=== PATIENT | male | born 1980 | race African-American/Black ===

== ENCOUNTER 2017-12-18 05:17 | Inpatient (IN) ==
--- NOTE | 2017-12-18 07:19 | ED ---
HPI General Chief Complaint: Abdominal Pain Stated Complaint: Abd pain Transfer [facility] Time Seen by Provider: 12/18/17 05:41 Source: patient, EMS, RN notes reviewed and old records reviewed Mode of arrival: EMS Limitations: no limitations History of Present Illness HPI narrative: Is a 37-year-old man, history of diabetes hypertension and renal , who presents as a transfer from [place]. He states he had abdominal pain today, and noticed cloudy fluid in his dialysate, and had abdominal fullness and pain. He recognizes his symptoms of bacterial peritonitis because he had it before. He went to the emergency department in [place], and apparently was transferred here from nephrology support. Related Data Home Medications Medication Instructions Recorded Confirmed alprazolam 1 mg PO DAILY 12/18/17 12/18/17 calcium acetate 2,001 mg PO TID 12/18/17 12/18/17 cholecalciferol (vitamin D3) 2,000 unit PO DAILY 12/18/17 12/18/17 cinacalcet 30 mg PO HS 12/18/17 12/18/17 cinnamon bark 500 mg PO DAILY 12/18/17 12/18/17 garlic 1,000 mg PO DAILY 12/18/17 12/18/17 losartan-hydrochlorothiazide 1 tab PO DAILY 12/18/17 12/18/17 minoxidil 20 mg PO DAILY 12/18/17 12/18/17 oxycodone 30 mg PO TID 12/18/17 12/18/17 sevelamer carbonate 2,400 mg PO DAILY 12/18/17 12/18/17 Allergies Allergy/AdvReac Type Severity Reaction Status Date / Time Sulfa (Sulfonamide Allergy Rash, Verified 12/18/17 05:33 Antibiotics) Generalized Review of Systems ROS: all other systems reviewed are negative [facility] Medical History Medical History Amputated toe of right foot (Acute) Diabetes (Acute) Hypertension (Acute) MDRO (multiple drug resistant organisms) resistance (Acute ~12/18/17) Peritoneal dialysis catheter in place (Acute) 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 SKIN: Warm and dry. CARDIOVASCULAR: Warm and well perfused. RESPIRATORY: Normal rate and effort. MUSCULOSKELETAL: Fistula in the left arm. ABDOMEN: Abdomen soft. Some mild diffuse tenderness. There is a peritoneal dialysis catheter in the left abdomen. NEUROLOGICAL: Awake and alert. No gross deficits. Course Initial Documented Vital Signs Temperature 98.9 F 12/18/17 05:23 Pulse Rate 91 H 12/18/17 05:23 Respiratory Rate 15 12/18/17 05:23 Blood Pressure 174/79 H 12/18/17 05:23 Pulse Oximetry 99 12/18/17 05:23 Last Documented Vital Signs Temperature 97.7 F 12/19/17 14:09 Pulse Rate 97 H 12/19/17 14:09 Respiratory Rate 18 12/19/17 14:09 Blood Pressure 150/68 H 12/19/17 14:09 Pulse Oximetry 97 12/19/17 14:09 Medical Decision Making MDM Narrative Medical decision making narrative: Is a 37-year-old male presents to the emergency department for evaluation for bacterial peritonitis. according to the transfer notes this was discussed with Dr. Hackett with nephrology. I attempted to speak with Dr. Hackett. He has not yet returned her call. I also spoke with Dr. Ohara, who states that her understanding of the situation was that the patient did not need to be admitted but needed to have patient antibiotic his peritoneal dialysis. Will attempt to discuss with nephrology. 9:15 AM. I spoke with nephrology Dr. Hackett and medical service. Patient will be admitted for peritoneal antibiotic that will be arranged by Dr. Hackett. Medical Screen Exam Complete: Yes Emergency Medical Condition: Yes Lab Data Result diagrams: 12/19/17 07:26 12/19/17 07:26 Lab Results 12/18/17 12/18/17 12/18/17 Range/Units 11:52 12:30 12:30 WBC 9.6 (4.0-11.0) th/mm3 RBC 2.55 L (4.50-5.90) mil/mm3 Hgb 8.2 L (13.0-17.0) gm/dL Hct 23.7 L (39.0-51.0) % MCV 92.8 (80.0-100.0) fL MCH 32.4 (27.0-34.0) pg MCHC 34.9 (32.0-36.0) % RDW 16.0 (11.6-17.2) % Plt Count 117 L (150-450) th/mm3 MPV 8.6 (7.0-11.0) fL Neut % (Auto) (16.0-70.0) % Lymph % (Auto) (9.0-44.0) % [place] % (Auto) (0.0-8.0) % Eos % (Auto) (0.0-4.0) % Baso % (Auto) (0.0-2.0) % Neut # (Auto) (1.8-7.7) th/mm3 Lymph # (Auto) (1.0-4.8) th/mm3 [place] # (Auto) (0.0-0.9) th/mm3 Eos # (Auto) (0.0-0.4) th/mm3 Baso # (Auto) (0.0-0.2) th/mm3 WBC Differential Differential Comment Sodium 139 (136-145) meq/L Potassium 3.7 (3.5-5.1) meq/L Chloride 95 L (98-107) meq/L Carbon Dioxide 29.3 (21.0-32.0) meq/L Anion Gap 15 (5-15) meq/L BUN 80 H (7-18) mg/dL Creatinine 12.81 H* (0.60-1.30) mg/dL Estimated GFR 5 L (>89) mL/min POC Glucose 128 H (68-110) mg/dl Random Glucose 124 H (74-106) mg/dL Calcium 7.8 L (8.5-10.1) mg/dL Phosphorus (2.5-4.9) mg/dL Magnesium (1.5-2.5) mg/dL Total Bilirubin (0.2-1.0) mg/dL AST (15-37) U/L ALT (12-78) U/L Alkaline Phosphatase (45-117) U/L Total Protein (6.4-8.2) g/dL Albumin (3.4-5.0) g/dL Peritoneal RBC (0-0) /mm3 Periton Nuc Cells (0-10) /mm3 Periton Neutrophils % Peritoneal Monocytes % Peritoneal Eosinophils % Periton Histiocytes % 12/18/17 12/18/17 12/18/17 Range/Units 14:30 17:05 19:58 WBC (4.0-11.0) th/mm3 RBC (4.50-5.90) mil/mm3 Hgb (13.0-17.0) gm/dL Hct (39.0-51.0) % MCV (80.0-100.0) fL MCH (27.0-34.0) pg MCHC (32.0-36.0) % RDW (11.6-17.2) % Plt Count (150-450) th/mm3 MPV (7.0-11.0) fL Neut % (Auto) (16.0-70.0) % Lymph % (Auto) (9.0-44.0) % [place] % (Auto) (0.0-8.0) % Eos % (Auto) (0.0-4.0) % Baso % (Auto) (0.0-2.0) % Neut # (Auto) (1.8-7.7) th/mm3 Lymph # (Auto) (1.0-4.8) th/mm3 [place] # (Auto) (0.0-0.9) th/mm3 Eos # (Auto) (0.0-0.4) th/mm3 Baso # (Auto) (0.0-0.2) th/mm3 WBC Differential Differential Comment Sodium (136-145) meq/L Potassium (3.5-5.1) meq/L Chloride (98-107) meq/L Carbon Dioxide (21.0-32.0) meq/L Anion Gap (5-15) meq/L BUN (7-18) mg/dL Creatinine (0.60-1.30) mg/dL Estimated GFR (>89) mL/min POC Glucose 146 H 129 H (68-110) mg/dl Random Glucose (74-106) mg/dL Calcium (8.5-10.1) mg/dL Phosphorus (2.5-4.9) mg/dL Magnesium (1.5-2.5) mg/dL Total Bilirubin (0.2-1.0) mg/dL AST (15-37) U/L ALT (12-78) U/L Alkaline Phosphatase (45-117) U/L Total Protein (6.4-8.2) g/dL Albumin (3.4-5.0) g/dL Peritoneal RBC 1009 H (0-0) /mm3 Periton Nuc Cells 7770 H (0-10) /mm3 Periton Neutrophils 95 % Peritoneal Monocytes 2 % Peritoneal Eosinophils 1 % Periton Histiocytes 2 % 12/19/17 12/19/17 12/19/17 Range/Units 07:26 07:26 08:30 WBC 7.3 (4.0-11.0) th/mm3 RBC 2.34 L (4.50-5.90) mil/mm3 Hgb 7.5 L (13.0-17.0) gm/dL Hct 22.0 L (39.0-51.0) % MCV 94.2 (80.0-100.0) fL MCH 32.2 (27.0-34.0) pg MCHC 34.2 (32.0-36.0) % RDW 15.3 (11.6-17.2) % Plt Count 112 L (150-450) th/mm3 MPV 8.3 (7.0-11.0) fL Neut % (Auto) 73.5 H (16.0-70.0) % Lymph % (Auto) 14.9 (9.0-44.0) % [place] % (Auto) 6.5 (0.0-8.0) % Eos % (Auto) 4.2 H (0.0-4.0) % Baso % (Auto) 0.9 (0.0-2.0) % Neut # (Auto) 5.3 (1.8-7.7) th/mm3 Lymph # (Auto) 1.1 (1.0-4.8) th/mm3 [place] # (Auto) 0.5 (0.0-0.9) th/mm3 Eos # (Auto) 0.3 (0.0-0.4) th/mm3 Baso # (Auto) 0.1 (0.0-0.2) th/mm3 WBC Differential . Differential Comment Auto diff final Sodium 136 (136-145) meq/L Potassium 3.4 L (3.5-5.1) meq/L Chloride 94 L (98-107) meq/L Carbon Dioxide 29.0 (21.0-32.0) meq/L Anion Gap 13 (5-15) meq/L BUN 66 H (7-18) mg/dL Creatinine 11.84 H* (0.60-1.30) mg/dL Estimated GFR 6 L (>89) mL/min POC Glucose 194 H (68-110) mg/dl Random Glucose 183 H (74-106) mg/dL Calcium 7.5 L (8.5-10.1) mg/dL Phosphorus 4.3 (2.5-4.9) mg/dL Magnesium 1.7 (1.5-2.5) mg/dL Total Bilirubin 0.6 (0.2-1.0) mg/dL AST 10 L (15-37) U/L ALT 13 (12-78) U/L Alkaline Phosphatase 101 (45-117) U/L Total Protein 6.3 L (6.4-8.2) g/dL Albumin 2.3 L (3.4-5.0) g/dL Peritoneal RBC (0-0) /mm3 Periton Nuc Cells (0-10) /mm3 Periton Neutrophils % Peritoneal Monocytes % Peritoneal Eosinophils % Periton Histiocytes % 12/19/17 Range/Units 11:45 WBC (4.0-11.0) th/mm3 RBC (4.50-5.90) mil/mm3 Hgb (13.0-17.0) gm/dL Hct (39.0-51.0) % MCV (80.0-100.0) fL MCH (27.0-34.0) pg MCHC (32.0-36.0) % RDW (11.6-17.2) % Plt Count (150-450) th/mm3 MPV (7.0-11.0) fL Neut % (Auto) (16.0-70.0) % Lymph % (Auto) (9.0-44.0) % [place] % (Auto) (0.0-8.0) % Eos % (Auto) (0.0-4.0) % Baso % (Auto) (0.0-2.0) % Neut # (Auto) (1.8-7.7) th/mm3 Lymph # (Auto) (1.0-4.8) th/mm3 [place] # (Auto) (0.0-0.9) th/mm3 Eos # (Auto) (0.0-0.4) th/mm3 Baso # (Auto) (0.0-0.2) th/mm3 WBC Differential Differential Comment Sodium (136-145) meq/L Potassium (3.5-5.1) meq/L Chloride (98-107) meq/L Carbon Dioxide (21.0-32.0) meq/L Anion Gap (5-15) meq/L BUN (7-18) mg/dL Creatinine (0.60-1.30) mg/dL Estimated GFR (>89) mL/min POC Glucose 149 H (68-110) mg/dl Random Glucose (74-106) mg/dL Calcium (8.5-10.1) mg/dL Phosphorus (2.5-4.9) mg/dL Magnesium (1.5-2.5) mg/dL Total Bilirubin (0.2-1.0) mg/dL AST (15-37) U/L ALT (12-78) U/L Alkaline Phosphatase (45-117) U/L Total Protein (6.4-8.2) g/dL Albumin (3.4-5.0) g/dL Peritoneal RBC (0-0) /mm3 Periton Nuc Cells (0-10) /mm3 Periton Neutrophils % Peritoneal Monocytes % Peritoneal Eosinophils % Periton Histiocytes % CBC unremarkable, white blood cell count 11.9, hemoglobin 8.7, platelet count 151 INR 1.5 Peritoneal fluid shows 1476 WBC, 41 RBC, 70% neutrophils, glucose 1247, total protein 0.3, LDH 19 CMP shows sodium 136, potassium 3.5, bicarb 26, anion gap 23, BUN and creatinine 70/11.74 Discharge Plan Discharge Disposition Patient Disposition: 30 Still Patient Discharge Condition Condition: Fair Discharge Order Discharge Orders: Discharge Order (Routine); Ordered 12/19/17 Ordered By: Vikas Solo Discharge Details Diagnosis: Peritonitis, History of end stage renal disease Physicians Team ED Provider: Arsen Del Real Primary Care Provider: UNKNOWN, Attending Provider: Vikas Solo Other Providers: Jani Hackett V Status ED Status: Left Department Discharge Information Discharge Date/Time: 12/18/17 10:50
[2017-12-18] MEDS ORDERED: Morphine Sulfate Inj 2 MG/ML Vial IV.PUSH ONE (08:40)
[2017-12-18] MEDS ORDERED: Sod Chloride 0.9% Inj 1,000 ML IV.CONT SCH (09:30)
[2017-12-18] MEDS ORDERED: Non-Formulary Drug (Losartan-Hydrochlorothiazide [Losartan-Hydrochlorothiazide] 1 TAB) PO SCH (11:00)
--- NOTE | 2017-12-18 11:21 | P.HPIM ---
History of Present Illness Primary Care Physician: UNKNOWN Chief Complaint: abdominal pain History of Present Illness: patient is a 37 y/o male with history of hypertension, diet-controlled diabetes , ESRD on peritoneal dialysis presented to ER with abdominal pain. he says that the pain started last night. abdominal pain was generalized, severe and constant. pain was associated with nausea and fever. he says that while he was getting his peritoneal dialysis he noticed that the fluid ' was cloudy'. he was seen at [facility] but since no nephrology was available , he was transferred to [place] for further evaluation. Inpatient Certification: I certify that the inpatient services were ordered in accordance with Medicare regulations governing the order. This includes certification that hospital inpatient services are reasonable and necessary and in the case of services not specified as inpatient-only under 42 CFR 419.22(n), that they are appropriately provided as inpatient services in accordance to with the 2-midnight benchmark under 43 CFR 412.3(e) Review of Systems All other systems reviewed negative except as stated in HPI PMFSH - History History Provided By: Patient - Medical History Medical History: Medical History (Last Reviewed 12/18/17 @ 10:54 by Vikas Solo MD) Amputated toe of right foot Diabetes Hypertension Peritoneal dialysis catheter in place 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 - Surgical History Surgical History: Surgical History (Last Reviewed 12/18/17 @ 10:54 by Vikas Solo MD) S/P cholecystectomy - Family History Family History: Family History (Last Updated 12/18/17 @ 10:54 by Vikas Solo MD) Other No pertinent family history - Tobacco History Second Hand Smoke Exposure: No Smoking Status: Never smoker - Alcohol History How Often Do You Have a Drink Containing Alcohol: Never - Travel History Recent Travel in the [facility] Within the Last 8 Weeks: No - Immunization History Tetanus Immunization: <5 Years Medications and Allergies Active Medications: Active Medications Alprazolam (Xanax) 1 mg PO DAILY [facility] Cinacalcet (Sensipar) 30 mg PO HS [facility] Clonidine HCl (Catapres) 0.1 mg PO Q8HR PRN PRN Reason: SBP > 180 or DBP > 100 Ceftazidime 1,000 mg/ Sodium (Chloride) 100 mls @ 200 mls/hr I-PERITONL DAILY [facility] Sodium Chloride (Ns Inj) 1,000 mls @ 42 mls/hr IV.CONT .[id number] [facility] Minoxidil (Loniten) 20 mg PO DAILY [facility] Non-Formulary Medication (Calcium Acetate [Calcium Acetate]) 2,001 mg PO TID [facility] Non-Formulary Medication (Cholecalciferol (Vitamin D3) [Cholecalciferol ( Vitamin D3)]) 2,000 unit PO DAILY [facility] Non-Formulary Medication (Losartan-Hydrochlorothiazide [Losartan- Hydrochlorothiazide]) 1 tab PO DAILY [facility] Non-Formulary Medication (Oxycodone [Oxycodone]) 30 mg PO TID [facility] Non-Formulary Medication (Sevelamer Carbonate [Sevelamer Carbonate]) 2,400 mg PO DAILY [facility] Vancomycin HCl (Vancomycin Inj) 2,000 mg I-PERITONL Q7D [facility] Allergies Allergy/AdvReac Type Severity Reaction Status Date / Time Sulfa (Sulfonamide Allergy Rash, Verified 12/18/17 05:33 Antibiotics) Generalized Home Medications Medication Instructions Recorded Confirmed Type alprazolam 1 mg PO DAILY 12/18/17 12/18/17 History calcium acetate 2,001 mg PO TID 12/18/17 12/18/17 History cholecalciferol (vitamin D3) 2,000 unit PO DAILY 12/18/17 12/18/17 History cinacalcet 30 mg PO HS 12/18/17 12/18/17 History cinnamon bark 500 mg PO DAILY 12/18/17 12/18/17 History garlic 1,000 mg PO DAILY 12/18/17 12/18/17 History losartan-hydrochlorothiazide 1 tab PO DAILY 12/18/17 12/18/17 History minoxidil 20 mg PO DAILY 12/18/17 12/18/17 History oxycodone 30 mg PO TID 12/18/17 12/18/17 History sevelamer carbonate 2,400 mg PO DAILY 12/18/17 12/18/17 History Exam Vital signs: Vital Signs 12/18/17 05:23 12/18/17 07:45 12/18/17 08:53 Temperature 98.9 F 98.9 F Pulse Rate 91 H 89 87 Respiratory Rate 15 19 17 Blood Pressure 174/79 H 190/83 H 214/96 H Pulse Oximetry 99 97 94 L 12/18/17 09:45 Temperature Pulse Rate 85 Respiratory Rate 16 Blood Pressure 175/74 H Pulse Oximetry 95 Intake & Output 12/17/17 12/18/17 12/18/17 18:59 06:59 18:59 Weight 101.605 kg - Constitutional no acute distress - Routine HEENT Exam Eye: Present: PERRL - Routine Neck Exam Present: supple - Routine Respiratory Exam Present: CTA bilaterally - Routine Cardiovascular Exam Present: RRR - Routine Abdominal Exam Present: soft, tenderness (generalized tenederness.) - Routine Extremities Exam Comments: s/p left BKA - Routine Neurological Exam Present: alert, oriented X3 Caprini VTE Risk Assessment Caprini VTE Risk Assessment: Moderate/High Risk (score >= 2) Caprini Risk Assessment Model: Point Value = 1 Point Value = 2 Point Value = 3 Point Value = 5 Age 41-60 Minor surgery BMI > 25 kg/m2 Swollen legs Varicose veins or History of unexplained or recurrent spontaneous Oral contraceptives or hormone replacement Sepsis (< 1 month) Serious lung disease, including pneumonia (< 1 month) Abnormal pulmonary function Acute myocardial infarction Congestive heart failure (< 1 month) History of inflammatory bowel disease Medical patient at bed rest Age 61-74 Arthroscopic surgery Major open surgery (> 45 min) Laparoscopic surgery (> 45 min) Malignancy Confined to bed (> 72 hours) Immobilizing plaster cast Central venous access Age >= 75 History of VTE Family history of VTE Factor V Leiden Prothrombin [id number] Lupus anticoagulant Anticardiolipin antibodies Elevated serum homocysteine Heparin-induced thrombocytopenia Other congenital or acquired thrombophilia Stroke (< 1 month) Elective arthroplasty Hip, pelvis, or leg fracture Acute spinal cord injury (< 1 month) Prophylaxis Regimen: Total Risk Factor Score Risk Level Prophylaxis Regimen 0-1 Low Early ambulation 2 Moderate Order ONE of the following: *Sequential Compression Device (SCD) *Heparin 5000 units SQ BID 3-4 Higher Order ONE of the following medications: *Heparin 5000 units SQ TID *Enoxaparin/Lovenox 40 mg SQ daily (WT < 150 kg, CrCl > 30 mL/min) *Enoxaparin/Lovenox 30 mg SQ daily (WT < 150 kg, CrCl > 10-29 mL/min) *Enoxaparin/Lovenox 30 mg SQ BID (WT < 150 kg, CrCl > 30 mL/min) AND/OR *Sequential Compression Device (SCD) 5 or more Highest Order ONE of the following medications: *Heparin 5000 units SQ TID (Preferred with Epidurals) *Enoxaparin/Lovenox 40 mg SQ daily (WT < 150 kg, CrCl > 30 mL/min) *Enoxaparin/Lovenox 30 mg SQ daily (WT < 150 kg, CrCl > 10-29 mL/min) *Enoxaparin/Lovenox 30 mg SQ BID (WT < 150 kg, CrCl > 30 mL/min) AND *Sequential Compression Device (SCD) Assessment and Plan - Plan A/P - peritonitis- on peritoneal dialysis
[2017-12-18] MEDS ORDERED: Dextrose 50% in Water 50 ML Vial IV.PUSH PRN (11:23)
--- NOTE | 2017-12-18 11:33 | P.HPIM ---
History of Present Illness Primary Care Physician: UNKNOWN Chief Complaint: abdominal pain History of Present Illness: patient is a 37 y/o male with history of hypertension, diet-controlled diabetes , ESRD on peritoneal dialysis presented to ER with abdominal pain. he says that the pain started last night. abdominal pain was generalized, severe and constant. pain was associated with nausea and fever. he says that while he was getting his peritoneal dialysis he noticed that the fluid ' was cloudy'. he was seen at [facility] but since no nephrology was available , he was transferred to [facility] for further evaluation. Inpatient Certification: I certify that the inpatient services were ordered in accordance with Medicare regulations governing the order. This includes certification that hospital inpatient services are reasonable and necessary and in the case of services not specified as inpatient-only under 42 CFR 419.22(n), that they are appropriately provided as inpatient services in accordance to with the 2-midnight benchmark under 43 CFR 412.3(e) Estimated Total Length of Stay (Days): 2 Plans for Post Hospital Care: Home Review of Systems All other systems reviewed negative except as stated in HPI PMFSH - History History Provided By: Patient - Medical History Medical History: Medical History (Last Reviewed 12/18/17 @ 11:32 by Vikas Solo MD) Amputated toe of right foot Diabetes Hypertension Peritoneal dialysis catheter in place 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 - Surgical History Surgical History: Surgical History (Last Reviewed 12/18/17 @ 11:32 by Vikas Solo MD) S/P cholecystectomy - Family History Family History: Family History (Last Reviewed 12/18/17 @ 11:32 by Vikas Solo MD) Other No pertinent family history - Tobacco History Second Hand Smoke Exposure: No Smoking Status: Never smoker - Alcohol History How Often Do You Have a Drink Containing Alcohol: Never - Travel History Recent Travel in the [place] Within the Last 8 Weeks: No - Immunization History Tetanus Immunization: <5 Years Medications and Allergies Active Medications: Active Medications Alprazolam (Xanax) 1 mg PO DAILY [facility] Calcium Acetate (Phoslo) 2,001 mg PO TID [facility] Cinacalcet (Sensipar) 30 mg PO HS [facility] Clonidine HCl (Catapres) 0.1 mg PO Q8HR PRN PRN Reason: SBP > 180 or DBP > 100 Last Admin: 12/18/17 11:26 Dose: 0.1 mg Dextrose (D50w Vial) 50 ml IV.PUSH UNSCH PRN PRN Reason: PER HYPOGLYCEMIA PROTOCOL Glucagon (Glucagon Inj) 1 mg OTHER PRN PRN PRN Reason: for Hypoglycemia Protocol Hydrochlorothiazide (Microzide) 12.5 mg PO DAILY [facility] Last Admin: 12/18/17 11:26 Dose: 12.5 mg Ceftazidime 1,000 mg/ Sodium (Chloride) 100 mls @ 200 mls/hr I-PERITONL DAILY [facility] Sodium Chloride (Ns Inj) 1,000 mls @ 42 mls/hr IV.CONT .[id number] [facility] Last Admin: 12/18/17 10:59 Dose: 42 mls/hr Insulin Aspart (Novolog Insulin Correctional Sugar Inj) 0 unit SQ ACHS [facility]; Protocol Losartan Potassium (Cozaar) 50 mg PO DAILY [facility] Last Admin: 12/18/17 11:26 Dose: 50 mg Minoxidil (Loniten) 20 mg PO DAILY [facility] Oxycodone HCl (Roxicodone) 30 mg PO TID [facility] Sevelamer Carbonate (Renvela) 2,400 mg PO DAILY [facility] Vancomycin HCl (Vancomycin Inj) 2,000 mg I-PERITONL Q7D [facility] Vitamin D (Vitamin D3) 2,000 unit PO DAILY [facility] Allergies Allergy/AdvReac Type Severity Reaction Status Date / Time Sulfa (Sulfonamide Allergy Rash, Verified 12/18/17 05:33 Antibiotics) Generalized Home Medications Medication Instructions Recorded Confirmed Type alprazolam 1 mg PO DAILY 12/18/17 12/18/17 History calcium acetate 2,001 mg PO TID 12/18/17 12/18/17 History cholecalciferol (vitamin D3) 2,000 unit PO DAILY 12/18/17 12/18/17 History cinacalcet 30 mg PO HS 12/18/17 12/18/17 History cinnamon bark 500 mg PO DAILY 12/18/17 12/18/17 History garlic 1,000 mg PO DAILY 12/18/17 12/18/17 History losartan-hydrochlorothiazide 1 tab PO DAILY 12/18/17 12/18/17 History minoxidil 20 mg PO DAILY 12/18/17 12/18/17 History oxycodone 30 mg PO TID 12/18/17 12/18/17 History sevelamer carbonate 2,400 mg PO DAILY 12/18/17 12/18/17 History Exam Vital signs: Vital Signs 12/18/17 05:23 12/18/17 07:45 12/18/17 08:53 Temperature 98.9 F 98.9 F Pulse Rate 91 H 89 87 Respiratory Rate 15 19 17 Blood Pressure 174/79 H 190/83 H 214/96 H Pulse Oximetry 99 97 94 L 12/18/17 09:45 12/18/17 10:58 Temperature Pulse Rate 85 Respiratory Rate 16 17 Blood Pressure 175/74 H Pulse Oximetry 95 Intake & Output 12/17/17 12/18/17 12/18/17 18:59 06:59 18:59 Weight 101.605 kg - Constitutional no acute distress - Routine HEENT Exam Eye: Present: PERRL - Routine Neck Exam Present: supple - Routine Respiratory Exam Present: CTA bilaterally - Routine Cardiovascular Exam Present: RRR - Routine Abdominal Exam Present: soft, tenderness (generalized tenderness.) - Routine Extremities Exam Comments: no pedal edema. - Routine Neurological Exam Present: alert, oriented X3 Results - Labs CBC & Chem 7: 12/18/17 12:30 12/18/17 12:30 Caprini VTE Risk Assessment Caprini VTE Risk Assessment: Moderate/High Risk (score >= 2) Caprini Risk Assessment Model: Point Value = 1 Point Value = 2 Point Value = 3 Point Value = 5 Age 41-60 Minor surgery BMI > 25 kg/m2 Swollen legs Varicose veins or History of unexplained or recurrent spontaneous Oral contraceptives or hormone replacement Sepsis (< 1 month) Serious lung disease, including pneumonia (< 1 month) Abnormal pulmonary function Acute myocardial infarction Congestive heart failure (< 1 month) History of inflammatory bowel disease Medical patient at bed rest Age 61-74 Arthroscopic surgery Major open surgery (> 45 min) Laparoscopic surgery (> 45 min) Malignancy Confined to bed (> 72 hours) Immobilizing plaster cast Central venous access Age >= 75 History of VTE Family history of VTE Factor V Leiden Prothrombin [id number] Lupus anticoagulant Anticardiolipin antibodies Elevated serum homocysteine Heparin-induced thrombocytopenia Other congenital or acquired thrombophilia Stroke (< 1 month) Elective arthroplasty Hip, pelvis, or leg fracture Acute spinal cord injury (< 1 month) Prophylaxis Regimen: Total Risk Factor Score Risk Level Prophylaxis Regimen 0-1 Low Early ambulation 2 Moderate Order ONE of the following: *Sequential Compression Device (SCD) *Heparin 5000 units SQ BID 3-4 Higher Order ONE of the following medications: *Heparin 5000 units SQ TID *Enoxaparin/Lovenox 40 mg SQ daily (WT < 150 kg, CrCl > 30 mL/min) *Enoxaparin/Lovenox 30 mg SQ daily (WT < 150 kg, CrCl > 10-29 mL/min) *Enoxaparin/Lovenox 30 mg SQ BID (WT < 150 kg, CrCl > 30 mL/min) AND/OR *Sequential Compression Device (SCD) 5 or more Highest Order ONE of the following medications: *Heparin 5000 units SQ TID (Preferred with Epidurals) *Enoxaparin/Lovenox 40 mg SQ daily (WT < 150 kg, CrCl > 30 mL/min) *Enoxaparin/Lovenox 30 mg SQ daily (WT < 150 kg, CrCl > 10-29 mL/min) *Enoxaparin/Lovenox 30 mg SQ BID (WT < 150 kg, CrCl > 30 mL/min) AND *Sequential Compression Device (SCD) Assessment and Plan - Plan A/P - peritonitis- on peritoneal dialysis started on Ceftazidime and Vanco- will consult Nephrology- continue with pain control and antiemetics as needed. -hypertension; resume home meds- clonidine as needed. -diabetes mellitus- diet controlled- start on accu-check with SSI -anemia- of chronic disease- will monitor. -DVT prophylaxis with subq heparin Discussed Condition With: ER physician and the patient.
[2017-12-18] MEDS: Insulin NovoLOG Aspart Correctional Sugar Inj SQ SCH ×3 (12:05→21:35)
[2017-12-18] MEDS: Calcium Acetate 667 MG Capsule PO SCH ×2 (12:24→17:46)
[2017-12-18 12:52] LABS: Hematocrit 23.7 % (39.0-51.0); Hemoglobin 8.2 gm/dL (13.0-17.0); Mean Corpuscular HGB Conc 34.9 % (32.0-36.0); Mean Corpuscular Hemoglobin 32.4 pg (27.0-34.0); Mean Corpuscular Volume 92.8 fL (80.0-100.0); Mean Platelet Volume 8.6 fL (7.0-11.0); Platelet Count 117 th/mm3 (150-450); Red Blood Count 2.55 mil/mm3 (4.50-5.90); White Blood Count 9.6 th/mm3 (4.0-11.0)
[2017-12-18 13:14] LABS: Calcium 7.8 mg/dL (8.5-10.1); Carbon Dioxide 29.3 meq/L (21.0-32.0); Potassium 3.7 meq/L (3.5-5.1)
[2017-12-18 16:27] LABS: Eosinophils,Peritoneal Fluid 1 %; Neutrophils,Peritoneal Fluid 95 %; RBC,Peritoneal Fluid 1009 /mm3 (0-0)
--- NOTE | 2017-12-18 19:36 | MB ---
cc: Jani Hackett MD DATE: 12/18/2017 REASON FOR CONSULTATION: End-stage renal disease management. HISTORY OF PRESENT ILLNESS: This is a 37-year-old male with a history of diabetes, hypertension and ESRD, on peritoneal dialysis. The patient lives in [place] and has been on peritoneal dialysis for approximately 3 years. He was on home dialysis prior to that. Apparently, the patient had an episode of peritonitis approximately 2-3 years ago, which was treated with antibiotics. Otherwise, he was in his usual state of health; however, over the last 48 hours, complained of abdominal pains. He did have peritoneal dialysis treatment at home, which revealed findings of cloudy fluid. At that point, given his abdominal pains and suspicion for peritonitis, he went to his local ER, which was apparently [facility]. Last night, I was given a call from [place] where they apparently are unable to do peritoneal dialysis or give antibiotics and the patient was transferred up here to [place]. At this point, the patient is resting comfortably in bed. He has some ongoing abdominal discomforts and pains; however, reports this is somewhat improved since last night. He has no other acute complaints at this point. Apparently at [facility], PD fluid was checked, which revealed 14,000 white blood cells and 70% neutrophils and the patient was transferred here for further peritoneal dialysis management. He was admitted by the primary team and has been restarted on his diabetes and blood pressure medications. He is resting in bed comfortably with no other acute complaints at this time. REVIEW OF SYSTEMS: The patient denies any fevers, chills. No nausea, no vomiting, no diarrhea, no constipation, no dysuria. The patient has abdominal pains with peritoneal fluid drainage; however, this has improved over the last 24 hours. No dizziness or loss of consciousness. Otherwise, review of systems is negative. PAST MEDICAL HISTORY: Includes a right foot amputation, left leg amputation, diabetes, hypertension, peritoneal dialysis catheter. The patient has right upper arm AV fistula. Surgical history includes cholecystectomy. FAMILY HISTORY: Noncontributory. SOCIAL HISTORY: No alcohol, tobacco or drug use. The patient lives at home in [place]. MEDICATIONS AT HOME: Included: 1. Xanax. 2. PhosLo. 3. Sensipar. 4. Catapres. 5. Thiazide. 6. Insulin. 7. Losartan. 8. Minoxidil. 9. Oxycodone. 10. Renagel. 11. Vitamin D. ALLERGIES: INCLUDE SULFA ALLERGY. PHYSICAL EXAMINATION: VITAL SIGNS: At the time of evaluation, temperature 99.7, pulse 84, respiratory rate 16, blood pressure 179/81, 98% oxygen saturation. GENERAL: Awake, alert and oriented, in no apparent distress. NECK: Soft, supple. CARDIAC: Regular rate and rhythm. PULMONARY: Lungs are clear to auscultation. ABDOMEN: Soft. Mild tenderness. PD catheter in place with no signs of any drainage or erythema. EXTREMITIES: No edema. The patient with a left BKA. The patient with a right upper arm AV fistula with good thrill. LABORATORY FINDINGS: From [facility], peritoneal fluid with a 14,000 white blood cells, 70% neutrophils, LDH of 19. Sodium 139, potassium 3.7, chloride 95, bicarbonate 29.3, BUN 80, creatinine 12.8, glucose 124, calcium 7.8. White count 9.6, hemoglobin 8.2, hematocrit 23.7, platelet count 117. ASSESSMENT AND PLAN: 1. End-stage renal disease. The patient is on peritoneal dialysis. We will continue with peritoneal dialysis prescription here. The patient reports having good drainage of 2 liters on his last treatment. Volume status and electrolytes otherwise stable. 2. Peritonitis. The patient was symptomatic findings of peritonitis. At this point, initial peritoneal fluid from [place] is suspicious for a peritoneal infection in addition to abdominal tenderness and cloudy fluid per dialysate per the patient. At this point, we will start with peritonitis treatment. We will give vancomycin 2 grams intraperitoneal x1 with peritoneal dialysis treatment tonight. In addition, we will give Fortaz 1 gram. The Fortaz can be continued for peritonitis daily. Continue to monitor tonight. The patient, of note, has his peritoneal dialysis managed by [facility] in [place]. Dr. Sahu is a piano case maker down there. I have discussed this with the peritoneal dialysis nurse human resources operations manager. We will do a peritoneal dialysis treatment tonight with antibiotics and attempt to possibly discharge the patient home after peritoneal dialysis with antibiotics tomorrow. The patient was originally transferred here because of inability to manage peritonitis and peritoneal dialysis at [facility] in [place]. We will continue peritoneal treatment for now and ideally continue with antibiotics as an outpatient once arrangements can be made. For his PD in [place], the contact phone numbers are: [phone] After hours: 3. Diabetes. Continue with insulin. 4. Hypertension. Continue with medications. 5. Case management. May need case management assistance for further discharge after peritoneal dialysis potentially tomorrow evening or early Wednesday morning. The patient does not have any friends or family in the [place] area and will need transportation back to [place] at home. MD HUI Ybarra/shanita , 04:36 PM , 04:46 PM MTDD
[2017-12-18] MEDS: Heparin - SQ 10,000 UNITS/ML Vial SQ SCH (21:32)
[2017-12-19 08:17] LABS: Baso # (Auto) 0.1 th/mm3 (0.0-0.2); Baso % (Auto) 0.9 % (0.0-2.0); Eos # (Auto) 0.3 th/mm3 (0.0-0.4); Eos % (Auto) 4.2 % (0.0-4.0); Hemoglobin 7.5 gm/dL (13.0-17.0); Lymph # (Auto) 1.1 th/mm3 (1.0-4.8); Lymph % (Auto) 14.9 % (9.0-44.0); Mean Corpuscular HGB Conc 34.2 % (32.0-36.0); Mean Corpuscular Hemoglobin 32.2 pg (27.0-34.0); Mean Corpuscular Volume 94.2 fL (80.0-100.0); Mean Platelet Volume 8.3 fL (7.0-11.0); Mono # (Auto) 0.5 th/mm3 (0.0-0.9); Mono % (Auto) 6.5 % (0.0-8.0); Neut # (Auto) 5.3 th/mm3 (1.8-7.7); Neut % (Auto) 73.5 % (16.0-70.0); Platelet Count 112 th/mm3 (150-450); Red Blood Count 2.34 mil/mm3 (4.50-5.90); Red Cell Distribution Width 15.3 % (11.6-17.2); White Blood Count 7.3 th/mm3 (4.0-11.0)
[2017-12-19 08:37] LABS: Albumin 2.3 g/dL (3.4-5.0); Anion Gap 13 meq/L (5-15); Aspartate Aminotransferase 10 U/L (15-37); Blood Urea Nitrogen 66 mg/dL (7-18); Calcium 7.5 mg/dL (8.5-10.1); Chloride 94 meq/L (98-107); Glomerular Filtration Rate 6 mL/min (>89); Glucose,Random 183 mg/dL (74-106); Magnesium 1.7 mg/dL (1.5-2.5); Potassium 3.4 meq/L (3.5-5.1); Sodium 136 meq/L (136-145)
[2017-12-19 08:39] LABS: Alanine Aminotransferase 13 U/L (12-78); Phosphorus 4.3 mg/dL (2.5-4.9)
[2017-12-19 08:40] LABS: Alkaline Phosphatase 101 U/L (45-117); Total Protein 6.3 g/dL (6.4-8.2)
[2017-12-19] MEDS ORDERED: Minoxidil 10 MG Tablet PO SCH (09:00)
[2017-12-19] MEDS: Insulin NovoLOG Aspart Correctional Sugar Inj SQ SCH ×2 (09:21→12:11)
[2017-12-19] MEDS: Calcium Acetate 667 MG Capsule PO SCH ×2 (09:23→13:40)
[2017-12-19] MEDS: Heparin - SQ 10,000 UNITS/ML Vial SQ SCH (09:24)
--- NOTE | 2017-12-19 09:49 | P.PNIM ---
Subjective Interval history: f/u; peritonitis in no acute distress. feels better today and abdominal pain has improved. no fever. d/w the RN. Physical Exam Vital signs: Vital Signs 12/18/17 10:58 12/18/17 12:00 12/18/17 16:00 Temperature 99.7 F H 98.6 F Pulse Rate 84 85 Respiratory Rate 17 16 14 Blood Pressure 179/81 H 134/82 Pulse Oximetry 98 99 12/18/17 20:00 12/19/17 00:00 12/19/17 08:00 Temperature 99.2 F 98.8 F 98.1 F Pulse Rate 88 88 78 Respiratory Rate 20 20 16 Blood Pressure 218/100 H 147/84 H 145/75 H Pulse Oximetry 99 95 99 Intake & Output 12/18/17 12/19/17 12/19/17 18:59 06:59 18:59 Intake Total 0 / 0 480 / 480 Output Total 0 / 0 1688 / 1688 Balance 0 / 0 480 / 480 -1688 / -1688 Weight 101.605 kg 101 kg Intake: Oral 0 / 0 480 / 480 Output: Urine 0 / 0 Peritoneal Amount 1688 / 1688 Other: # Voids 0 Date of Last Bowel Movement 12/17/17 12/17/17 # Bowel Movements 1 0 Weight On Admission 101.605 kg - Constitutional no acute distress - Routine Respiratory Exam Present: CTA bilaterally - Routine Cardiovascular Exam Present: RRR - Routine Abdominal Exam Present: soft - Routine Extremities Exam Comments: no pedal edema. - Routine Neurological Exam Present: alert, oriented X3 Results - Labs CBC & Chem 7: 12/19/17 07:26 12/19/17 07:26 Laboratory Results - last 24 hr 12/18/17 12/18/17 12/18/17 11:52 12:30 12:30 WBC 9.6 RBC 2.55 L Hgb 8.2 L Hct 23.7 L MCV 92.8 MCH 32.4 MCHC 34.9 RDW 16.0 Plt Count 117 L MPV 8.6 Neut % (Auto) Lymph % (Auto) [place] % (Auto) Eos % (Auto) Baso % (Auto) Neut # (Auto) Lymph # (Auto) [place] # (Auto) Eos # (Auto) Baso # (Auto) WBC Differential Differential Comment Sodium 139 Potassium 3.7 Chloride 95 L Carbon Dioxide 29.3 Anion Gap 15 BUN 80 H Creatinine 12.81 H* Estimated GFR 5 L POC Glucose 128 H Random Glucose 124 H Calcium 7.8 L Phosphorus Magnesium Total Bilirubin AST ALT Alkaline Phosphatase Total Protein Albumin Peritoneal RBC Periton Nuc Cells Periton Neutrophils Peritoneal Monocytes Peritoneal Eosinophils Periton Histiocytes 12/18/17 12/18/17 12/18/17 14:30 17:05 19:58 WBC RBC Hgb Hct MCV MCH MCHC RDW Plt Count MPV Neut % (Auto) Lymph % (Auto) [place] % (Auto) Eos % (Auto) Baso % (Auto) Neut # (Auto) Lymph # (Auto) [place] # (Auto) Eos # (Auto) Baso # (Auto) WBC Differential Differential Comment Sodium Potassium Chloride Carbon Dioxide Anion Gap BUN Creatinine Estimated GFR POC Glucose 146 H 129 H Random Glucose Calcium Phosphorus Magnesium Total Bilirubin AST ALT Alkaline Phosphatase Total Protein Albumin Peritoneal RBC 1009 H Periton Nuc Cells 7770 H Periton Neutrophils 95 Peritoneal Monocytes 2 Peritoneal Eosinophils 1 Periton Histiocytes 2 12/19/17 12/19/17 12/19/17 07:26 07:26 08:30 WBC 7.3 RBC 2.34 L Hgb 7.5 L Hct 22.0 L MCV 94.2 MCH 32.2 MCHC 34.2 RDW 15.3 Plt Count 112 L MPV 8.3 Neut % (Auto) 73.5 H Lymph % (Auto) 14.9 [place] % (Auto) 6.5 Eos % (Auto) 4.2 H Baso % (Auto) 0.9 Neut # (Auto) 5.3 Lymph # (Auto) 1.1 [place] # (Auto) 0.5 Eos # (Auto) 0.3 Baso # (Auto) 0.1 WBC Differential . Differential Comment Auto diff final Sodium 136 Potassium 3.4 L Chloride 94 L Carbon Dioxide 29.0 Anion Gap 13 BUN 66 H Creatinine 11.84 H* Estimated GFR 6 L POC Glucose 194 H Random Glucose 183 H Calcium 7.5 L Phosphorus 4.3 Magnesium 1.7 Total Bilirubin 0.6 AST 10 L ALT 13 Alkaline Phosphatase 101 Total Protein 6.3 L Albumin 2.3 L Peritoneal RBC Periton Nuc Cells Periton Neutrophils Peritoneal Monocytes Peritoneal Eosinophils Periton Histiocytes Assessment and Plan - Plan A/P - peritonitis- on peritoneal dialysis- clinically improving. started on Ceftazidime and Vanco- nephrology consult appreciated. continue with pain control and antiemetics as needed. -hypertension; resumed home meds- clonidine as needed. -diabetes mellitus- diet controlled- started on accu-check with SSI -anemia- of chronic disease- will monitor. -DVT prophylaxis with subq heparin Discharge Planning: dc home within the next 24 hrs- when cleared by nephrology.
--- NOTE | 2017-12-19 12:22 | P.PNNP ---
Subjective Interval history: Feeling better today, abdominal pains improving. Tolerated PD last night Physical Exam Vital signs: Vital Signs 12/18/17 16:00 12/18/17 20:00 12/19/17 00:00 Temperature 98.6 F 99.2 F 98.8 F Pulse Rate 85 88 88 Respiratory Rate 14 20 20 Blood Pressure 134/82 218/100 H 147/84 H Pulse Oximetry 99 99 95 12/19/17 08:00 12/19/17 11:30 12/19/17 12:00 Temperature 98.1 F 98.6 F Pulse Rate 78 82 Respiratory Rate 16 19 Blood Pressure 145/75 H 201/92 H 200/90 H Pulse Oximetry 99 96 Intake & Output 12/18/17 12/19/17 12/19/17 18:59 06:59 18:59 Intake Total 0 / 0 480 / 480 Output Total 0 / 0 1688 / 1688 Balance 0 / 0 480 / 480 -1688 / -1688 Weight 101.605 kg 101 kg Intake: Oral 0 / 0 480 / 480 Output: Urine 0 / 0 Peritoneal Amount 1688 / 1688 Other: # Voids 0 Date of Last Bowel Movement 12/17/17 12/17/17 12/17/17 # Bowel Movements 1 0 Weight On Admission 101.605 kg - Constitutional no acute distress - Routine HEENT Exam Head: Present: normocephalic Eye: Present: EOMI ENT: Present: mucous membranes moist - Routine Neck Exam Present: supple - Routine Respiratory Exam Present: CTA bilaterally - Routine Cardiovascular Exam Present: RRR - Routine Abdominal Exam Present: soft - Routine Extremities Exam Present: AV fistula - Routine Skin Exam Present: intact - Routine Neurological Exam Present: alert, oriented X3 - Detailed Neurological Exam: Coma Scale Eye Opening: Spontaneous - Routine Psychiatric Exam Present: normal affect Assessment and Plan - Assessment (1) History of end stage renal disease Code(s): Z87.448 - Personal history of other diseases of urinary system Status : Acute Plan: Tolerating peritoneal dialysis, 1.6L UF. Volume status, electrolytes stable. Continue PD (2) Peritonitis Code(s): K65.9 - Peritonitis, unspecified Status: Acute Plan: Symtoms improved today Apparent peritonitis - cultures pending at this point. Afebrile Peritoneal WBC count from 14,000 at [facility] to 7000 here yesterday Patient initially transferred from [place] due to inability to manage PD At this point symptomatically improved, WBC improving Can continue with antibiotics with outpatient PD center ([facility], follows with Dr. Sahu) Discussed with his on-call PD nurse yesterday Patient received 2 grams vancomycin IP yesterday (12/18), which can be continued weekly Received 1 gram Fortaz yesterday and 1 gram with 6 hour dwell today. Continue Fortaz 1gram IP daily with outpatient PD in [place]. Stable for discharge back to home from renal standpoint, with further follow-up with outpatient PD. Cultures still pending from PD fluid 12/18. May contact my office Wednesday/ Wednesday to follow cultures ([phone]: Jani Hackett M.D, [facility])
--- NOTE | 2017-12-19 14:05 | P.DS ---
Date of admission: 12/18/17 09:16 Primary care physician: UNKNOWN Brief History from admission: patient is a 37 y/o male with history of hypertension, diet-controlled diabetes , ESRD on peritoneal dialysis presented to ER with abdominal pain. he says that the pain started last night. abdominal pain was generalized, severe and constant. pain was associated with nausea and fever. he says that while he was getting his peritoneal dialysis he noticed that the fluid ' was cloudy'. he was seen at [facility] but since no nephrology was available , he was transferred to [place] for further evaluation. DS: Medications - Discharge Medications Prescriptions: ceftazidime [TAZICEF] 1,000 mg INTRAPERITONEAL DAILY 5 Days each DS: Summary Hospital Course: patient was admitted with peritonitis. he was starred on antibiotics along with his peritoneal dialysis. his general condition improved. the fluid cultures are pending that will be followed up by the nephrology. he was cleared for discharge by nephrology with outpatient follow-up. - Time Spent with Patient Total time spent providing and/or coordinating discharge services: Less than 30 minutes - Quality: VTE Deep Vein Thrombosis/Pulmonary Embolism Present on Admission: No Exam Vital signs: Vital Signs 12/18/17 16:00 12/18/17 20:00 12/19/17 00:00 Temperature 98.6 F 99.2 F 98.8 F Pulse Rate 85 88 88 Respiratory Rate 14 20 20 Blood Pressure 134/82 218/100 H 147/84 H Pulse Oximetry 99 99 95 12/19/17 08:00 12/19/17 11:30 12/19/17 12:00 Temperature 98.1 F 98.6 F Pulse Rate 78 82 Respiratory Rate 16 19 Blood Pressure 145/75 H 201/92 H 200/90 H Pulse Oximetry 99 96 Intake & Output 12/18/17 12/19/17 12/19/17 18:59 06:59 18:59 Intake Total 0 / 0 480 / 480 Output Total 0 / 0 1687 / 1687 Balance 0 / 0 480 / 480 -1687 / -1687 Weight 101.605 kg 101 kg Intake: Oral 0 / 0 480 / 480 Output: Urine 0 / 0 Peritoneal Amount 1687 Other: # Voids 0 Date of Last Bowel Movement 12/17/17 12/17/17 12/17/17 # Bowel Movements 1 0 Weight On Admission 101.605 kg - Constitutional no acute distress - Routine Respiratory Exam Present: CTA bilaterally - Routine Cardiovascular Exam Present: RRR - Routine Abdominal Exam Present: soft - Routine Extremities Exam Comments: no pedal edema. - Routine Neurological Exam Present: alert, oriented X3 Results Procedures completed during hospitalization: none. Labs on day of discharge: Labs from last 24 hours 12/19/17 12/19/17 12/19/17 11:45 08:30 07:26 WBC 7.3 RBC 2.34 L Hgb 7.5 L Hct 22.0 L MCV 94.2 MCH 32.2 MCHC 34.2 RDW 15.3 Plt Count 112 L MPV 8.3 Neut % (Auto) 73.5 H Lymph % (Auto) 14.9 [place] % (Auto) 6.5 Eos % (Auto) 4.2 H Baso % (Auto) 0.9 Neut # (Auto) 5.3 Lymph # (Auto) 1.1 [place] # (Auto) 0.5 Eos # (Auto) 0.3 Baso # (Auto) 0.1 WBC Differential . Differential Comment Auto diff final Sodium Potassium Chloride Carbon Dioxide Anion Gap BUN Creatinine Estimated GFR POC Glucose 149 H 194 H Random Glucose Calcium Phosphorus Magnesium Total Bilirubin AST ALT Alkaline Phosphatase Total Protein Albumin Peritoneal RBC Periton Nuc Cells Periton Neutrophils Peritoneal Monocytes Peritoneal Eosinophils Periton Histiocytes 12/19/17 12/18/17 12/18/17 07:26 19:58 17:05 WBC RBC Hgb Hct MCV MCH MCHC RDW Plt Count MPV Neut % (Auto) Lymph % (Auto) [place] % (Auto) Eos % (Auto) Baso % (Auto) Neut # (Auto) Lymph # (Auto) [place] # (Auto) Eos # (Auto) Baso # (Auto) WBC Differential Differential Comment Sodium 136 Potassium 3.4 L Chloride 94 L Carbon Dioxide 29.0 Anion Gap 13 BUN 66 H Creatinine 11.84 H* Estimated GFR 6 L POC Glucose 129 H 146 H Random Glucose 183 H Calcium 7.5 L Phosphorus 4.3 Magnesium 1.7 Total Bilirubin 0.6 AST 10 L ALT 13 Alkaline Phosphatase 101 Total Protein 6.3 L Albumin 2.3 L Peritoneal RBC Periton Nuc Cells Periton Neutrophils Peritoneal Monocytes Peritoneal Eosinophils Periton Histiocytes 12/18/17 14:30 WBC RBC Hgb Hct MCV MCH MCHC RDW Plt Count MPV Neut % (Auto) Lymph % (Auto) [place] % (Auto) Eos % (Auto) Baso % (Auto) Neut # (Auto) Lymph # (Auto) [place] # (Auto) Eos # (Auto) Baso # (Auto) WBC Differential Differential Comment Sodium Potassium Chloride Carbon Dioxide Anion Gap BUN Creatinine Estimated GFR POC Glucose Random Glucose Calcium Phosphorus Magnesium Total Bilirubin AST ALT Alkaline Phosphatase Total Protein Albumin Peritoneal RBC 1009 H Periton Nuc Cells 7770 H Periton Neutrophils 95 Peritoneal Monocytes 2 Peritoneal Eosinophils 1 Periton Histiocytes 2 Discharge Plan - Discharge Disposition Patient Disposition: 01 Discharge Home - Discharge Condition Condition: Fair - Physicians Team Primary Care Provider: UNKNOWN, Attending Provider: Vikas Solo Other Providers: Jani Hackett MD
[2017-12-19 14:11] VITALS: BP 150/68
[2017-12-19 14:18] VITALS: PULSE 97; RESP 18; TEMP 97.7; O2SAT 97
== END 2017-12-19 14:40 | disposition home or self-care (01) ==
LOC: NEPE 05:17 → NEDA 09:16 → N07 10:50
PROVIDERS: ADMIT Internal Medicine; ATTEND Internal Medicine